=== PATIENT | female | born 1985 | race Native Hawaiian/Other Pacific Islander ===

== ENCOUNTER 2017-07-25 10:05 | Inpatient (IN) | payer SELFPAY ==
[2017-07-25] VITALS (10 sets, daily range): BP systolic 99–112; BP diastolic 55–69; PULSE 82–105; RESP 17–18; TEMP 97.7–99; O2SAT 98–100
[~2017-07-25] VITALS: Ht 162.6 cm; Wt 81.0 kg
[2017-07-25] MEDS ORDERED: LACTATED RINGER'S 1000 ML INJ 1,000 ML IV ONE ×2 (10:53→12:00)
--- NOTE | 2017-07-25 11:00 | HHI.HP ---
HPI Chief Complaint here for csection Date Seen: July 25, 2017 Time Seen: 10:55 Travel History International Travel<30 Days: No Contact w/Intl Traveler<30Days: No Known Affected Area: No History of Present Illness HPI 32yo at 39-40 weeks gestation with care at Liliana Colvin's office. Pt is here for repeat . Declines tubal ligation. Weeks Gestation: 39 Para: 3 : 4 History Past Medical History Medical History: Denies Significant Hx Obstetric History Obstetric History x 3 - Patient states she was under GETA with each surgery Family History Family History: Negative Social History Alcohol Use: No Tobacco Use: No Substance Abuse: No Allergies-Medications (Allergen,Severity, Reaction): Coded Allergies: No Known Allergies (Unverified , 07/25/17) Review of Systems Except as stated in HPI: all other systems reviewed are Neg Physical Exam Narrative GENERAL: Well-nourished, well-developed patient. SKIN: Warm and dry. HEAD: Normocephalic and atraumatic. EYES: No scleral icterus. No injection or drainage. ENT: No nasal drainage noted. Mucous membranes pink. Airway patent. NECK: Supple, trachea midline. No JVD. CARDIOVASCULAR: Regular rate and rhythm without murmurs, gallops, or rubs. RESPIRATORY: Breath sounds equal bilaterally. No accessory muscle use. BREASTS: Bilateral exam showed no masses , no retractions, no nipple discharge. ABDOMEN/GI: Abdomen soft, non-tender, bowel sounds present, no rebound, no guarding Gravid to [39-] weeks size Fundal Height: [-] GENITOURINARY: deferred External Genitalia: intact and normal in appearance BUS glands: [-] Cervix: [-] Dilatation: [-] Effacement: [-] Station: [-] Presentation: [-] Membranes: [intact or ruptured] Uterine Contractions: [-] FHT's: Category: [-] 1 Baseline: [-] 140 Reactive: [-] mod Variability: [-] mod Decels: [-]absent EXTREMITIES: No cyanosis or edema. BACK: Nontender without obvious deformity. No CVA tenderness. NEUROLOGICAL: Awake and alert. Motor and sensory grossly within normal limits. Five out of 5 muscle strength in all muscle groups. Normal speech. Caprini VTE Risk Assessment Caprini VTE Risk Assessment: No/Low Risk (score <= 1) Caprini Risk Assessment Model Point Value = 1 Point Value = 2 Point Value = 3 Point Value = 5 Age 41-60 Minor surgery BMI > 25 kg/m2 Swollen legs Varicose veins or History of unexplained or recurrent spontaneous Oral contraceptives or hormone replacement Sepsis (< 1 month) Serious lung disease, including pneumonia (< 1 month) Abnormal pulmonary function Acute myocardial infarction Congestive heart failure (< 1 month) History of inflammatory bowel disease Medical patient at bed rest Age 61-74 Arthroscopic surgery Major open surgery (> 45 min) Laparoscopic surgery (> 45 min) Malignancy Confined to bed (> 72 hours) Immobilizing plaster cast Central venous access Age >= 75 History of VTE Family history of VTE Factor V Leiden Prothrombin [id number] Lupus anticoagulant Anticardiolipin antibodies Elevated serum homocysteine Heparin-induced thrombocytopenia Other congenital or acquired thrombophilia Stroke (< 1 month) Elective arthroplasty Hip, pelvis, or leg fracture Acute spinal cord injury (< 1 month) Prophylaxis Regimen Total Risk Factor Score Risk Level Prophylaxis Regimen 0-1 Low Early ambulation 2 Moderate Order ONE of the following: *Sequential Compression Device (SCD) *Heparin 5000 units SQ BID 3-4 Higher Order ONE of the following medications: *Heparin 5000 units SQ TID *Enoxaparin/Lovenox 40 mg SQ daily (WT < 150 kg, CrCl > 30 mL/min) *Enoxaparin/Lovenox 30 mg SQ daily (WT < 150 kg, CrCl > 10-29 mL/min) *Enoxaparin/Lovenox 30 mg SQ BID (WT < 150 kg, CrCl > 30 mL/min) AND/OR *Sequential Compression Device (SCD) 5 or more Highest Order ONE of the following medications: *Heparin 5000 units SQ TID (Preferred with Epidurals) *Enoxaparin/Lovenox 40 mg SQ daily (WT < 150 kg, CrCl > 30 mL/min) *Enoxaparin/Lovenox 30 mg SQ daily (WT < 150 kg, CrCl > 10-29 mL/min) *Enoxaparin/Lovenox 30 mg SQ BID (WT < 150 kg, CrCl > 30 mL/min) AND *Sequential Compression Device (SCD) Data Data Vital Signs Reviewed: Yes Group B Strep: Negative Assessment/Plan Problem List: (1) 39 weeks gestation of ICD Codes: Z3A.39 - 39 weeks gestation of (2) Previous delivery affecting , antepartum ICD Codes: O34.219 - Maternal care for unspecified type scar from previous delivery Assessment and Plan Plan repeat today. Discussed spinal anesthesia vs GETA and the recommendations for Spinal. Patient and her spouse were given the risks of surgery including injury to the bowel, bladder, ureters, blood transfusion and anesthetic risks. Three prior c-sections place this patient at greater than average risk for intraoperative injury due to adhesions. Lisa Garcia MD July 25, 2017 11:00
[2017-07-25] MEDS ORDERED: LACTATED RINGER'S 1000 ML INJ 1,000 ML IV SCH (11:23)
[2017-07-25 11:39] LABS: AUTOMATED NEUTROPHIL # 4.5 TH/MM3 (1.8-7.7); BASOPHIL % 0.3 % (0.0-2.0); EOSINOPHIL # 0.2 TH/MM3 (0-0.4); EOSINOPHIL % 2.4 % (0.0-4.0); HEMATOCRIT 35.7 % (35.0-46.0); HEMOGLOBIN 11.9 GM/DL (11.6-15.3); LYMPH % 26.7 % (9.0-44.0); MEAN CELL VOLUME 76.3 FL (80.0-100.0); MEAN CORPUSCULAR HEMOGLOBIN 25.5 PG (27.0-34.0); MEAN CORPUSCULAR HGB CONC 33.4 % (32.0-36.0); MEAN PLATELET VOLUME 8.1 FL (7.0-11.0); MONO % 9.3 % (0.0-8.0); MONOCYTE # 0.7 TH/MM3 (0-0.9); NEUT % 61.3 % (16.0-70.0); PLATELET COUNT 265 TH/MM3 (150-450); RED BLOOD COUNT 4.68 MIL/MM3 (4.00-5.30); RED CELL DISTRIBUTION WIDTH 16.8 % (11.6-17.2); WHITE BLOOD COUNT 7.4 TH/MM3 (4.0-11.0)
[2017-07-25 11:53] LABS: AMORPHOUS SEDIMENT, URINE RARE; BACTERIA, URINE OCC /hpf; BILIRUBIN, URINE NEG (NEG); BLOOD, URINE NEG (NEG); GLUCOSE,URINE NEG (NEG); KETONE, URINE NEG (NEG); MUCUS URINE FEW /lpf (OCC); NITRITE,URINE NEG (NEG); SQUAMOUS EPITHELIAL CELL URINE 20 /hpf (0-5); URINE COLOR YELLOW (YELLW/STRAW); URINE LEUKOCYTE ESTERASE NEG (NEG)
[2017-07-25] MEDS ORDERED: ceFAZolin INJ 1,000 MG VIAL IV ONE (12:00)
[2017-07-25] MEDS ORDERED: DEXAMETHASONE SOD PHOS 4 MG/ML VIAL IV ONE (12:00)
[2017-07-25] MEDS ORDERED: NORMOSOL R INJ 1,000 ML IV ONE (12:00)
[2017-07-25] MEDS ORDERED: ePHEDrine/NS 25 MG/5 ML SYRINGE IV ONE (12:00)
[2017-07-25] MEDS ORDERED: PROPOFOL 200 MG/20 ML AMP IV ONE (12:00)
[2017-07-25] MEDS ORDERED: CEFAZOLIN INJ 2,000 MG in SODIUM CHLORIDE 0.9% INJ 100 ML IV SCH (12:00)
[2017-07-25] MEDS ORDERED: OXYTOCIN 10 UNIT/ML AMP IV ONE (12:00)
[2017-07-25] MEDS ORDERED: ONDANSETRON HCL 4 MG/2 ML VIAL IV ONE (12:00)
[2017-07-25] MEDS ORDERED: CITRIC ACID-SODIUM CITRATE LIQ 30 ML UDC PO SCH (12:30)
[2017-07-25] MEDS ORDERED: MORPHINE SULFATE PF 5 MG/10 ML VIAL ONE (12:43)
[2017-07-25] MEDS ORDERED: ACETAMINOPHEN 1000 MG/100 ML 100 ML IV ONE (12:43)
[2017-07-25] MEDS ORDERED: fentaNYL CITRATE 250 MCG/5 ML AMP ONE (12:43)
[2017-07-25] MEDS ORDERED: MIDAZOLAM HCL 2 MG/2 ML VIAL ONE (12:43)
--- NOTE | 2017-07-25 13:59 | PD.OB.DELI ---
Procedure Note Section Procedure Pre Op Diagnosis: (1) 39 weeks gestation of (2) Previous delivery affecting , antepartum Post Op Diagnosis: Performed by Lisa Garcia Procedure: Repeat Low Transverse Sec Indication for delivery: Desired elective repeat Informed consent obtained: For anesthesia, For procedure Confirmed correct: Time-out taken Anesthesia: Spinal Medication prior to procedure: As documented in eMAR, Antibiotics, IV Monitoring during procedure: Blood pressure monitoring, Pulse oximetry Urinary catheter: Inserted using sterile technique Sterile preparation: Duraprep, In usual fashion Position: Supine with wedge to left side Operative Features Skin Incision: Pfannenstiel Uterine Incision: Low transverse w/knife / blunt ext Membranes Ruptured: Artificially, Appearance of fluid (clear) Presentation: Occiput anterior Delivery date: July 25, 2017 Delivery time: 13:33 Delivery of infant: Uneventful : Male One Minute : 9 Five Minute : 9 Weight: 6#13oz Status of infant: Viable Placenta delivered: Intact Medications: Antibiotics, Oxytocin Estimated blood loss: 600 Procedure tolerated: Well Maternal Condition: Stable Condition: Stable Lisa Garcia MD July 25, 2017 13:58
[2017-07-25] MEDS ORDERED: SIMETHICONE 80 MG CHEWABLE TAB PO PRN (14:00)
[2017-07-25] MEDS ORDERED: ACETAMINOPHEN 325 MG TAB PO PRN (14:00)
[2017-07-25] MEDS ORDERED: OXYTOCIN 30 UNITS-500ML PREMIX 500 ML IV ONE (14:00)
[2017-07-25] MEDS ORDERED: SODIUM CHLORIDE 0.9% FLUSH 10 ML FLUSH IV FLUSH PRN (14:00)
[2017-07-25] MEDS ORDERED: ONDANSETRON ODT 4 MG TAB PO PRN (14:00)
--- NOTE | 2017-07-25 14:34 | MP ---
cc: Lisa Garcia MD DATE OF OPERATION: 07/25/2017 DATE OF PROCEDURE: 07/25/2017 SURGEON: Lisa Garcia MD. PREOPERATIVE DIAGNOSES: 1. Thirty-nine weeks' gestation. 2. Previous section, desires repeat. POSTOPERATIVE DIAGNOSES: 1. Thirty-nine weeks' gestation. 2. Previous section, desires repeat. PROCEDURE PERFORMED: Repeat low transverse section without extension. ESTIMATED BLOOD LOSS: 600 mL. ANESTHESIA: Spinal. MEDICATIONS: Ancef 2 grams given preoperatively. COMPLICATIONS: No complications were noted. COUNTS: Correct x3. DRAINS: Berger to gravity. PATHOLOGY: No pathology. FINDINGS: 1. Normal uterus, tubes and ovaries. 2. Clear amniotic fluid. 3. male, vertex presentation with clear amniotic fluid, weighing 6 pounds 13 ounces, taken back to the nursery. DESCRIPTION OF THE PROCEDURE: The patient was taken back to the operating room, prepped and draped in usual sterile fashion, placed in dorsal supine position with a wedge to her left side. After anesthetic was obtained, a Pfannenstiel incision was made through the skin, taken down to the fascia. The fascia was nicked in the midline, extended bilaterally and taken off the rectus muscles. The muscles were divided in the midline, anterior peritoneum was entered. Vesicouterine peritoneum was taken down. A transverse hysterotomy was made, bluntly extended bilaterally. The infant was delivered to the operative field. The rest of the body was delivered and handed off to the resuscitation team after a 45 second cord clamping delay. The placenta was delivered intact spontaneously and the endometrial cavity was curetted with a moist laparotomy sponge. Hysterotomy incision was repaired using a running locking #1 chromic suture with good hemostasis at closure. Gutters were rendered free of all blood and clot material. The abdominal muscles were plicated gently together in midline using interrupted sutures of #1 chromic suture. A 3-0 Monocryl was used in the skin subcuticularly. The patient tolerated the procedure well. She was taken back to the recovery room in good condition. Lisa Garcia MD LH/SB , 02:03 PM , 02:33 PM
[2017-07-25] MEDS ORDERED: EPIDURAL-NALOXONE HCL 0.4 MG/ML AMP IV PUSH PRN (15:45)
[2017-07-25] MEDS ORDERED: EPIDURAL-NO SYSTEMIC NARCOTICS PRN (15:45)
[2017-07-25] MEDS ORDERED: EPIDURAL-DO NOT ADMINISTER ANTICOAGULANTS PRN (15:45)
[2017-07-25] MEDS ORDERED: EPIDURAL-DIPHENHYDRAMINE HCL 50 MG/ML VIAL IV PUSH PRN (15:45)
[2017-07-25] MEDS ORDERED: EPIDURAL-DIPHENHYDRAMINE HCL 50 MG CAP PO PRN (15:45)
[2017-07-25] MEDS ORDERED: OXYTOCIN 30 UNITS-500ML PREMIX 500 ML IV PRN (19:00)
[2017-07-25] MEDS ORDERED: KETOROLAC TROMETHAMINE 30 MG/ML (IVP) VIAL IV PUSH ONE (19:15)
[2017-07-26] VITALS (7 sets, daily range): BP systolic 103–119; BP diastolic 65–69; PULSE 68–87; RESP 18–20; TEMP 97.6–98
[2017-07-26] MEDS ORDERED: KETOROLAC TROMETHAMINE 30 MG/ML (IVP) VIAL IV PUSH PRN (01:00)
[2017-07-26] MEDS: oxyCODONE/ACETAMINOPHEN 5 MG/325 MG TAB PO PRN ×4 (03:06→22:08)
[2017-07-26 08:28] LABS: AUTOMATED NEUTROPHIL # 8.8 TH/MM3 (1.8-7.7); BASOPHIL # 0.1 TH/MM3 (0-0.2); BASOPHIL % 0.4 % (0.0-2.0); EOSINOPHIL # 0.2 TH/MM3 (0-0.4); EOSINOPHIL % 1.8 % (0.0-4.0); HEMATOCRIT 37.8 % (35.0-46.0); HEMOGLOBIN 12.2 GM/DL (11.6-15.3); LYMPH % 20.8 % (9.0-44.0); LYMPHOCYTE # 2.7 TH/MM3 (1.0-4.8); MEAN CELL VOLUME 77.5 FL (80.0-100.0); MEAN CORPUSCULAR HGB CONC 32.3 % (32.0-36.0); MEAN PLATELET VOLUME 8.2 FL (7.0-11.0); MONO % 8.4 % (0.0-8.0); MONOCYTE # 1.1 TH/MM3 (0-0.9); NEUT % 68.6 % (16.0-70.0); PLATELET COUNT 274 TH/MM3 (150-450); RED BLOOD COUNT 4.89 MIL/MM3 (4.00-5.30); RED CELL DISTRIBUTION WIDTH 17.1 % (11.6-17.2); WHITE BLOOD COUNT 12.8 TH/MM3 (4.0-11.0)
--- NOTE | 2017-07-26 08:43 | HHI.OB ---
Subjective Post Operative Day: 1 Remarks Patient seen and examined this morning. A [employer] pricing clerk was used via a computer software for [place] to [place]ian translation and vice versa. AFVSS overnight. Postoperative day #1. Incision covered by bandage that is still in place without drainage. Decreased lochia. No breast tenderness. She states she has been ambulatory. Denies fevers or chills, chest pain, calf pain, shortness of breath, or cough. She reports difficulty voiding this morning since about 05: 00. Nursing staff has attempted to straight cath her however are meeting resistance. Patient endorses low abdominal fullness. Denies fevers or any sharp pains. Objective Vitals/I&O Vital Signs Date Time Temp Pulse Resp B/P (MAP) Pulse Ox O2 Delivery O2 Flow Rate FiO2 07/26/17 05:00 18 07/26/17 04:18 97.6 80 18 109/69 (82) 07/26/17 02:30 18 07/26/17 00:50 18 07/26/17 00:11 97.6 87 18 103/66 (78) 07/25/17 22:50 17 07/25/17 20:45 18 07/25/17 20:28 97.7 82 18 108/69 (82) 07/25/17 14:52 99 07/25/17 14:51 82 18 99/55 (70) 07/25/17 14:47 97.9 07/25/17 14:45 100 07/25/17 14:22 92 18 103/59 (74) 07/25/17 14:15 98 07/25/17 14:07 105 112/59 (76) 07/25/17 14:07 99.0 18 Intake & Output 07/26/17 07/26/17 07:00 19:00 Output Total 800 ml Balance -800 ml Output Urine Total 800 ml Result Diagram: 07/26/17 0813 Objective Remarks GENERAL: Well-nourished, well-developed patient. CARDIOVASCULAR: Regular rate and rhythm without murmurs, gallops, or rubs. RESPIRATORY: Breath sounds equal bilaterally. No accessory muscle use. ABDOMEN/GI: Abdomen soft, nondistended, non-tender, bowel sounds present. Incision: Covered by bandage, appearing dry Fundus: Firm, non-tender at umbilicus. GENITOURINARY: Light to moderate bleeding. EXTREMITIES: No cyanosis or edema, non-tender, without signs of DVT. Medications and IVs Current Medications Medications (Trade) Dose Ordered Sig/Luc Route Start Time Stop Time Status Last Admin Cefazolin Sodium 2000 mg/Sodium Chloride 120 ml @ 240 mls/hr CREDIT OPERATIONS SPECIALIST IV 07/25/17 12:00 07/29/17 11:59 (Bicitra Liq) 30 ml CREDIT OPERATIONS SPECIALIST PO 07/25/17 12:30 07/29/17 12:29 07/25/17 12:52 Lactated Ringer's 1,000 ml @ 100 mls/hr Q10H IV 07/25/17 18:58 07/26/17 14:57 Oxytocin 500 ml @ 100 mls/hr UNSCH X1 PRN IV 07/25/17 19:00 07/26/17 18:59 (NS Flush) 2 ml BID IV FLUSH 07/25/17 21:00 (NS Flush) 2 ml UNSCH PRN IV FLUSH 07/25/17 14:00 (Mylicon Chew) 80 mg QID PRN PO 07/25/17 14:00 (Tylenol) 650 mg Q6H PRN PO 07/25/17 14:00 (Motrin) 600 mg Q6H PRN PO 07/25/17 14:00 (Percocet 5-325 Mg) 1 tab Q4H PRN PO 07/25/17 14:00 07/26/17 03:06 (Percocet 5-325 Mg) 2 tab Q4H PRN PO 07/25/17 14:00 (Lisseth-Colace) 2 tab Q12H PRN PO 07/25/17 14:00 (M-M-R Ii Inj) 0.5 ml ONCE ONCE SQ 07/26/17 16:00 07/26/17 16:01 (Boostrix Inj) 0.5 ml ONCE ONCE IM 07/26/17 16:00 07/26/17 16:01 (Zofran Odt) 4 mg Q6H PRN PO 07/25/17 14:00 07/25/17 18:13 ([facility] Nursing Information) NO SYSTEMIC NARCOTICS TO BE GIVEN FO... UNSCH PRN .XX 07/25/17 15:45 07/26/17 15:44 (Narcan Inj) 0.4 mg UNSCH PRN IV PUSH 07/25/17 15:45 07/26/17 15:44 (Benadryl Inj) 25 mg Q6H PRN IV PUSH 07/25/17 15:45 07/26/17 15:44 07/26/17 00:53 (Benadryl) 50 mg Q6H PRN PO 07/25/17 15:45 07/26/17 15:44 ([facility] Nursing Information) ALL NURSING DEPARTMENTS UNSCH PRN .XX 07/25/17 15:45 07/26/17 15:44 (Toradol Inj) 30 mg Q6H PRN IV PUSH 07/26/17 01:00 07/30/17 00:59 Assessment/Plan Problem List: (1) care following delivery ICD Codes: Z39.2 - Encounter for routine follow-up Assessment and Plan 32 year-old POD#1 s/p . 1. Postoperative Care - AFVSS - Incision covered by bandage, appearing dry - Postop H&H 12.2/37.8, from 11.9/35.7 - Percocet and Motrin prn pain - Encouraged OOB, as tolerated - Advised pelvic rest x 6 weeks - Contraception: Will need discussion with patient regarding contraception - Recommended f/u in 1 week with OB provider for incision check after hospital discharge 2. Postop urinary retention - Likely due to anesthesia, will attempt straight cath again and if unsuccessful consider bladder scan - Encourage ambulation as tolerated, anticipate improving with voiding once anesthesia wears off dw Ole Moe MD R2 July 26, 2017 08:43
[2017-07-26] MEDS: SODIUM CHLORIDE 0.9% FLUSH 10 ML FLUSH IV FLUSH SCH ×2 (09:00→21:00)
[2017-07-26] MEDS: IBUPROFEN 600 MG TAB PO PRN ×3 (09:40→22:08)
[2017-07-26] MEDS ORDERED: MEASLES, MUMPS, RUBELLA VACCINE 0.5 ML VIAL SQ ONE (16:00)
[2017-07-26] MEDS ORDERED: DIPHTH/TETANUS/ACEL PERTUSSIS (BOOSTER) 0.5 ML VIAL/PFS IM ONE (16:00)
[2017-07-26] MEDS: DOCUSATE SODIUM 50 MG/SENNA 8.6 MG TAB PO PRN (22:07)
[2017-07-27] MEDS: oxyCODONE/ACETAMINOPHEN 5 MG/325 MG TAB PO PRN ×4 (02:30→21:33)
[2017-07-27] MEDS: IBUPROFEN 600 MG TAB PO PRN ×3 (06:09→21:33)
--- NOTE | 2017-07-27 08:43 | HHI.OB ---
Subjective Remarks History limited due to language barrier. Patient Services Manager service malfunctioning ( attempted 4 times on 2 different devices) 32 year old female s/p C/S at 39/5 wks gestation, POD. 2 AFVSS. Notes continued abdominal pain. Ambulating without difficulty. Objective Vitals/I&O Vital Signs Date Time Temp Pulse Resp B/P (MAP) Pulse Ox O2 Delivery O2 Flow Rate FiO2 07/26/17 20:00 98.0 68 18 119/67 (84) 07/26/17 09:00 20 07/26/17 09:00 83 105/65 (78) 07/26/17 09:00 97.9 Result Diagram: 07/26/17 0813 Objective Remarks GENERAL: Well-nourished, well-developed patient sitting on edge of bed, NAD. CARDIOVASCULAR: Regular rate and rhythm without murmurs, gallops, or rubs. RESPIRATORY: Breath sounds equal bilaterally. No accessory muscle use. ABDOMEN/GI: Abdomen soft, nondistended, moderately tender Incision: Covered by bandage, appearing dry Fundus: Firm, moderately tender at umbilicus. GENITOURINARY: Light to moderate bleeding. EXTREMITIES: No cyanosis or edema, non-tender, without signs of DVT. Medications and IVs Current Medications Medications (Trade) Dose Ordered Sig/Luc Route Start Time Stop Time Status Last Admin Cefazolin Sodium 2000 mg/Sodium Chloride 120 ml @ 240 mls/hr TRADE SHOW SPECIALIST IV 07/25/17 12:00 07/29/17 11:59 (Bicitra Liq) 30 ml TRADE SHOW SPECIALIST PO 07/25/17 12:30 07/29/17 12:29 07/25/17 12:52 (NS Flush) 2 ml BID IV FLUSH 07/25/17 21:00 07/26/17 09:00 (NS Flush) 2 ml UNSCH PRN IV FLUSH 07/25/17 14:00 (Mylicon Chew) 80 mg QID PRN PO 07/25/17 14:00 (Tylenol) 650 mg Q6H PRN PO 07/25/17 14:00 (Motrin) 600 mg Q6H PRN PO 07/25/17 14:00 07/27/17 06:09 (Percocet 5-325 Mg) 1 tab Q4H PRN PO 07/25/17 14:00 07/26/17 03:06 (Percocet 5-325 Mg) 2 tab Q4H PRN PO 07/25/17 14:00 07/27/17 06:09 (Lisseth-Colace) 2 tab Q12H PRN PO 07/25/17 14:00 07/26/17 22:07 (Zofran Odt) 4 mg Q6H PRN PO 07/25/17 14:00 07/25/17 18:13 (Toradol Inj) 30 mg Q6H PRN IV PUSH 07/26/17 01:00 07/30/17 00:59 Assessment/Plan Problem List: (1) care following delivery ICD Codes: Z39.2 - Encounter for routine follow-up Assessment and Plan 32 year-old POD#2 s/p . Postoperative Care - AFVSS - Incision covered by bandage, appearing dry - Postop H&H 12.2/37.8, from 11.9/35.7 - Percocet and Motrin prn pain - Encouraged OOB, as tolerated - Advised pelvic rest x 6 weeks - Contraception: Will need discussion with patient regarding contraception - Recommended f/u in 1 week with OB provider for incision check after hospital discharge Chavo Shin MD R2 July 27, 2017 08:43
[2017-07-27] MEDS: SODIUM CHLORIDE 0.9% FLUSH 10 ML FLUSH IV FLUSH SCH ×2 (09:00→21:00)
[2017-07-27] MEDS: LACTATED RINGER'S 1000 ML INJ 1,000 ML IV SCH ×2 (13:05→13:06)
[2017-07-27] MEDS: DOCUSATE SODIUM 50 MG/SENNA 8.6 MG TAB PO PRN (15:12)
[2017-07-27] MEDS ORDERED: ZOLPIDEM TARTRATE 10 MG TAB PO PRN (20:45)
[2017-07-28] MEDS: oxyCODONE/ACETAMINOPHEN 5 MG/325 MG TAB PO PRN ×4 (02:17→14:42)
[2017-07-28] MEDS: IBUPROFEN 600 MG TAB PO PRN ×2 (03:58→09:52)
[2017-07-28] MEDS ORDERED: IBUP-232 PO (08:58)
[2017-07-28] MEDS ORDERED: PERI PO (08:58)
[2017-07-28] MEDS ORDERED: OXYC1TAB63 PO (08:58)
--- NOTE | 2017-07-28 09:01 | HHI.DCPOC ---
Discharge Care Plan Diagnosis: (1) care following delivery Report Symptoms to Your Doctor -Temperature above 100.5 degrees -Redness, of incision or excessive or foul smelling drainage -Unusual pain or calf pain -Increased vaginal bleeding -Painful or difficulty urinating -Feelings of extreme sadness or anxiety after 2 weeks Goals to Promote Your Health * To prevent worsening of your condition and complications, follow-up with your OB provider within 1 week after hospital discharge. Directions to Meet Your Goals Take your medications as prescribed Follow your dietary instruction Follow activity as directed Ensure plenty of rest for recovery Drink fluids for hydration Keep your appointments as scheduled Take your immunizations and boosters as scheduled If your symptoms worsen call your PCP, if no PCP go to Urgent Care Center or Emergency Room Smoking is Dangerous to Your Health. Avoid second hand smoke Call the 24-hour crisis hotline for domestic abuse at Ole Chawla MD R2 July 28, 2017 09:01
--- NOTE | 2017-07-28 09:04 | HHI.OB ---
Subjective Post Operative Day: 3 Remarks Patient seen and examined this morning. A medical office representative was used via [employer] software to provide Sami to Swedish translation and vice versa. AFVSS overnight. Postoperative day #3. Patient states her pain has been tolerable with her current pain regimen. Incision not draining. Decreased lochia. Denies dysuria. No breast tenderness. Appetite good. No nausea or vomiting. Endorses flatus. Ambulating well. Denies fevers or chills, chest pain, calf pain, shortness of breath, or cough. She otherwise has no other complaints or concerns this morning. Objective Result Diagram: 07/26/17812 Objective Remarks GENERAL: Well-nourished, well-developed patient sitting on edge of bed, NAD. CARDIOVASCULAR: Regular rate and rhythm without murmurs, gallops, or rubs. RESPIRATORY: Breath sounds equal bilaterally. No accessory muscle use. ABDOMEN/GI: Abdomen soft, nondistended, moderately tender Incision: clean, dry, and intact Fundus: Firm, moderately tender at umbilicus. GENITOURINARY: Light to moderate bleeding. EXTREMITIES: No cyanosis or edema, non-tender, without signs of DVT. Medications and IVs Current Medications Medications (Trade) Dose Ordered Sig/Luc Route Start Time Stop Time Status Last Admin Cefazolin Sodium 2000 mg/Sodium Chloride 120 ml @ 240 mls/hr BLOOD BANK LABORATORY TECHNICIAN IV 07/25/17 12:00 07/29/17 11:59 (Bicitra Liq) 30 ml BLOOD BANK LABORATORY TECHNICIAN PO 07/25/17 12:30 07/29/17 12:29 07/25/17 12:52 (NS Flush) 2 ml BID IV FLUSH 07/25/17 21:00 07/26/17 09:00 (NS Flush) 2 ml UNSCH PRN IV FLUSH 07/25/17 14:00 (Mylicon Chew) 80 mg QID PRN PO 07/25/17 14:00 (Tylenol) 650 mg Q6H PRN PO 07/25/17 14:00 (Motrin) 600 mg Q6H PRN PO 07/25/17 14:00 07/28/17 03:58 (Percocet 5-325 Mg) 1 tab Q4H PRN PO 07/25/17 14:00 07/28/17 08:03 (Percocet 5-325 Mg) 2 tab Q4H PRN PO 07/25/17 14:00 07/27/17 10:31 (Lisseth-Colace) 2 tab Q12H PRN PO 07/25/17 14:00 07/27/17 15:12 (Zofran Odt) 4 mg Q6H PRN PO 07/25/17 14:00 07/25/17 18:13 (Toradol Inj) 30 mg Q6H PRN IV PUSH 07/26/17 01:00 07/30/17 00:59 (Ambien) 10 mg UNSCH X1 PRN PO 07/27/17 20:45 07/29/17 01:00 Assessment/Plan Problem List: (1) care following delivery ICD Codes: Z39.2 - Encounter for routine follow-up Assessment and Plan 32 year-old POD#3 s/p . Postoperative Care - AFVSS - Incision clean, dry, and intact - Postop H&H 12.2/37.8, from 11.9/35.7 - Percocet and Motrin prn pain - Encouraged OOB, as tolerated - Advised pelvic rest x 6 weeks - Contraception: Discussed with patient this morning, patient is still considering her options - Recommended f/u within 1 week with OB provider for incision check after hospital discharge ksasandra Garcia Discharge Planning Stable for discharge home today Ole Chawla MD R2 July 28, 2017 09:04
[2017-07-28] MEDS ORDERED: medroxyPROGESTERone ACETATE SUSP 150 MG/ML SYRINGE IM ONE (14:30)
== END 2017-07-28 14:47 | disposition home or self-care (01) | DRG 766 ==
LOC: H2EB 10:05 → H1EA 15:23 → HNUR 07-26 21:11 → H1EA 07-26 21:18
PROVIDERS: ADMIT Obstetrics & Gynecology Obstetrics; ATTEND Obstetrics & Gynecology Obstetrics
PROC: 10D00Z1 Extraction of Products of Conception, Low, Open Approach (ICD-10-PCS; principal; 2017-07-25)
DX: O34.219 Maternal care for unspecified type scar from previous cesarean delivery (principal); O90.89 Other complications of the puerperium, not elsewhere classified; R33.9 Retention of urine, unspecified; Z37.0 Single live birth; Z3A.39 39 weeks gestation of pregnancy
CPT/HCPCS: 59025; 80307; 81001; 85025; 86850; 86900; 86901; 90715; J0131; J0690; J1050; J1100; J1200; J1885; J2250; J2274; J2405; J2590; J3010; J7120